=== PATIENT | male | born 1975 | race Caucasian/White ===

== ENCOUNTER 2016-12-19 21:01 | Emergency (ER) | payer SELFPAY ==
[2016-12-19] MEDS ORDERED: DEMEROL INJ IM ONE (21:06)
--- NOTE | 2016-12-19 21:09 | DR.LACERAT ---
HPI - Time Seen Time seen: 21:00 - Complaints Chief Complaint Doctors Comments: Patient admits to putting up cround molding and fell off ladder. He admits to have injured his head and second digit of right hand. There was no LOC or vomiting. Admits to pain of 10 in severity, sharp, partially amputated ROS - Review of Systems Constitutional: No Symptoms Reported Eyes: No Symptoms Reported ENTM: No Symptoms Reported Respiratoy: No Symptoms Reported Cardiovascular: No Symptoms Reported Gastrointestinal/Abdominal: No Symptoms Reported Genitourinary: No Symptoms Reported Neurological: No Symptoms Reported Musculoskeletal: Hand (injury to 3rd digit of right hand) Integumentary: No Symptoms Reported, See HPI Hematologic/Lymphatic: No Symptoms Reported, See HPI Endocrine: No Symptoms Reported Psychiatric: No Symptoms Reported All Other Systems: Reviewed and Negative PE - Vital Signs Vitals: Temperature 98.1 F Pulse Rate 120 Respiratory Rate 18 Blood Pressure 158/82 O2 Sat by Pulse Oximetry 96 - General General Appearance: Alert, In No Apparent Distress - Head Head Exam: Normal Inspection, Atraumatic - Eyes Eye exam: Normal Appearance, PERRL, EOMI - ENT ENT Exam: Normal Exam - Neck Neck Exam: Normal Inspection, Full ROM - Chest Chest Inspection: Normal Inspection - Respiratory Respiratory Exam: Normal Lung Sounds Bilat Respiratory Exam: Bilateral Clear to Auscultation - Cardiovascular Cardiovascular Exam: Regular Rate, Normal Rhythm - Abdominal Exam Abdominal Exam: Normal Inspection Abdominal Tenderness: negative: RUQ, RLQ, LUQ, LLQ, Epigastrium, Suprapubic, Diffuse, Mild, Moderate, Severe, Other - Extremities Extremities Exam: Normal Inspection - Back Back Exam: Normal Inspection, Full ROM - Neurologic Neurological Exam: Alert, Oriented X3, CN II-XII Intact - Psychiatric Psychiatric Exam: Normal Affect - Skin Skin Exam: Warm, Dry. negative: Intact (partially amputated tip of right hand 3rd digit) Course - Reevaluation 1st: Improved ROR - XRAY XRAY Interpreted by: Radiologist (There is partial amputation of the distal aspect of the distal phalanx of the 3rd digit. There is a comminuted fracture of the tuft of the distal phalanx and the soft tissue injury. The remaining bones of the hand are intact. The joint spaces are preserved. No radiopaque foreign body identified.) Procedures - Laceration/Wound Repair Right 3rd Digit Wound Length (cm): 4 Wound's Depth, Shape: Irregular, Flap, Nail-Avulsed, Contused Tissue Wound Explored: clean Betadine Prep?: Yes (dorsal nerve block) Anesthesia: 1% Lidocaine Volume Anesthetic (ccs): 10 Suture Size/Type: 4:0, Ethilion (10) - Diagnosis Discharge Problem: Laceration - Discharge Plan Condition: Stable - Follow ups/Referrals Follow ups/Referrals: [facility],None [Primary Care Provider] - 3 days - Instructions
[2016-12-19] MEDS ORDERED: DEMEROL INJ ONE (21:21)
[2016-12-19 21:22] VITALS: BP 158/82; BMI 41.3
--- NOTE | 2016-12-19 21:49 | CT ---
EXAM: CT BRAIN WITHOUT CONTRAST INDICATION: Fall COMPARISION: No Priors TECHNIQUE: Routine axial CT of the brain was performed without intravenous contrast. FINDINGS: The cerebral and cerebellar cortex are normal. The ventricular system is nondilated. No intra or ext ra-axial mass or hemorrhage. The nelson-white junction is preserved. There is no evidence of subacute ischemic change. The basilar cisterns are clear. The skull is intact. The mastoid air cells are clear. IMPRESSION: Normal brain CT examination Reported By:
--- NOTE | 2016-12-19 21:50 | RAD ---
EXAM: Right hand x-ray INDICATION: Fall COMPARISION: No priors for comparison TECHNIQUE: AP, lateral, and oblique, three views FINDINGS: There is partial amputation of the distal aspect of the distal phalanx of the 3rd digit. There is a comminuted fracture of the tuft of the distal phalanx and soft tissue injury. The remaining bones of the hand are intact. The joint spaces are preserved. No radiopaque foreign body identified. IMPRESSION: There is a partial amputation with fracture of the distal phalanx of the 3rd digit. Reported By:
[2016-12-19] MEDS ORDERED: BACTROBAN OINT TOP ONE (22:51)
[2016-12-19] MEDS ORDERED: BACITRACIN ZINC ONE (22:51)
[2016-12-19] MEDS ORDERED: NORCO 7.5/325 MG TAB PO ONE (23:01)
[2016-12-19] MEDS ORDERED: NORCO 7.5/325 MG TAB ONE (23:03)
== END 2016-12-19 23:16 | disposition home or self-care (01) ==
LOC: ER 21:01
PROC: 0XQS0ZZ Repair Right Ring Finger, Open Approach (ICD-10-PCS; principal; 2016-12-19)
DX: S61.214A Laceration without foreign body of right ring finger without damage to nail, initial encounter (principal); W11.XXXA Fall on and from ladder, initial encounter; Y92.9 Unspecified place or not applicable
CPT/HCPCS: 12002; 29130; 70450; 73130; 96372; 99283; J2175